=== PATIENT | female | born 1990 | race Caucasian/White ===

== ENCOUNTER 2017-03-21 20:48 | Emergency (ER) | payer OTHER | END 2017-03-22 00:30 | disposition home or self-care (01) | LOC: M ED 20:48 | DX: S06.0X0A Concussion without loss of consciousness, initial encounter (principal); V49.59XA Passenger injured in collision with other motor vehicles in traffic accident, initial encounter; Y92.410 Unspecified street and highway as the place of occurrence of the external cause; Z79.3 Long term (current) use of hormonal contraceptives; Z91.010 Allergy to peanuts | CPT/HCPCS: 99283 ==